=== PATIENT | female | born 1955 | race Caucasian/White ===

== ENCOUNTER 2019-04-14 18:17 | Emergency (ER) | END 2019-04-14 20:18 | disposition home or self-care (01) | DX: J20.9 Acute bronchitis, unspecified (principal); R07.9 Chest pain, unspecified; K21.9 Gastro-esophageal reflux disease without esophagitis; Z79.899 Other long term (current) drug therapy | CPT/HCPCS: 36415; 71045; 80048; 80076; 83880; 84484; 85025; 85379; 93005; 99284; J7512 ==

== ENCOUNTER 2019-05-08 15:23 | Emergency (ER) | payer MEDICARE, OTHER ==
[~2019-05-08] VITALS: Ht 152.4 cm; Wt 50.8 kg
[~2019-05-08 15:23] MED LIST: OMEP20TA5 PO; TRAZ-182 PO; VALA10002 PO
[2019-05-08] MEDS ORDERED: HYDROCODONE/APAP 5-325MG TABLET PO ONE ×2 (15:45→16:00)
[2019-05-08] MEDS ORDERED: HYDROCODONE/APAP 5-325MG TABLET ONE (15:50)
[2019-05-08 16:07] VITALS: BP 129/63
--- NOTE | 2019-05-08 16:07 | NUR ---
Patient discharged to home in stable conditon. Written and verbal after care instructions given. Patient verbalizes understanding of instructions.
== END 2019-05-08 16:07 | disposition home or self-care (01) ==
LOC: ER 15:24
DX: J04.0 Acute laryngitis (principal); H66.92 Otitis media, unspecified, left ear; K21.9 Gastro-esophageal reflux disease without esophagitis; Z79.899 Other long term (current) drug therapy
CPT/HCPCS: A4663